=== PATIENT | male | born 2000 | race Caucasian/White ===

== ENCOUNTER 2024-01-10 23:15 | Emergency (ER) | payer MEDICAID ==
[~2024-01-10] VITALS: Ht 182.9 cm; Wt 85.3 kg
[2024-01-10 23:44] VITALS: BP 123/78; PULSE 70; RESP 16; TEMP 98.1; O2SAT 99
== END 2024-01-10 23:47 | disposition home or self-care (01) ==
LOC: ER 23:16
DX: R05.9 Cough, unspecified (principal); R23.3 Spontaneous ecchymoses; J45.909 Unspecified asthma, uncomplicated
CPT/HCPCS: 99281